=== PATIENT | female | born 1970 | race Caucasian/White ===

== ENCOUNTER → 2017-05-04 | Outpatient (REF) | payer BC | LOC: M LAB REF 12:56 | PROVIDERS: ATTEND Otolaryngology | DX: H65.22 Chronic serous otitis media, left ear (principal) ==

== ENCOUNTER 2017-11-21 10:23 | Day surgery (SDC) | payer BC ==
[~2017-11-21 10:23] MED LIST: ACETAMINOPHEN 325 MG TAB PO; PHENYLEPHRINE HCL 10 % OPHTH. SOL 5ML OS; PROPARACAINE 0.5% OPHTH SOL 15ML OS
[2017-11-21] MEDS: TROPICAMIDE 1% OPHTH SOLN 2ML OS (11:23)
[2017-11-21] MEDS: OFLOXACIN 0.3 % (OCUFLOX) OPTH SOL 5ML OS (11:24)
[2017-11-21] MEDS: PHENYLEPHRINE 2.5% OPHTH SOL 2ML OS (11:24)
[2017-11-21] MEDS: LIDOCAINE 3.5 % 1ML OPHTH TOPICAL GEL OU (11:24)
[2017-11-21] MEDS: CYCLOPENTOLATE 2% OPHTH SOLN 2ML BTL OS (11:24)
[2017-11-21] MEDS ORDERED: fentaNYL 100 MCG/2 ML INJECTION (J3010) As Ordered (12:16)
[2017-11-21] MEDS ORDERED: MIDAZOLAM INJ 2 MG/2 ML VIAL (J2250) As Ordered (12:16)
[2017-11-21] MEDS: POVIDONE-IODINE 5% OPHTH PREP SOL 30ML As Ordered (12:19)
[2017-11-21] MEDS: LIDOCAINE 1% SDV 5 ML VIAL As Ordered (12:20)
[2017-11-21] MEDS: BALANCED SALT IRRIGATION SOLUTION 500ML BAG (FOR OR EYE MACHINE) As Ordered (12:20)
[2017-11-21] MEDS: CEFUROXIME 1MG/0.1ML INTRACAMERAL INJ As Ordered (12:20)
[2017-11-21] MEDS: ACETYLCHOLINE OPHTH SOLN 1% 2ML (MIOCHOL-E) As Ordered (12:20)
[2017-11-21] MEDS: HEALON DUET (HEALON 10MG/ML 0.55ML & HEALON ENDOCOAT 30MG/ML 0.85ML) As Ordered (12:20)
[2017-11-21] MEDS ORDERED: TRIMETHOBENZAMIDE 300 MG CAP PO (13:00)
[2017-11-21] MEDS: AcetaZOLAMIDE 500 MG ER CAP PO (13:01)
[2017-11-21] MEDS: KETOROLAC 0.5% OPHTH SOLN OS (13:01)
== END 2017-11-21 13:16 | disposition home or self-care (01) ==
LOC: M SDC 10:23
DX: H25.12 Age-related nuclear cataract, left eye (principal); H25.042 Posterior subcapsular polar age-related cataract, left eye; K21.9 Gastro-esophageal reflux disease without esophagitis; F41.9 Anxiety disorder, unspecified; Z79.899 Other long term (current) drug therapy
CPT/HCPCS: 66984

== ENCOUNTER 2019-07-08 08:23 | Day surgery (SDC) | payer BC ==
[~2019-07-08] VITALS: Ht 167.6 cm; Wt 58.4 kg
[~2019-07-08 08:23] MED LIST changes: -ACETAMINOPHEN 325 MG TAB PO; +CALC-136 PO; +CHOL100029 PO; +ESTR625TA PO; +LEXA1TAB PO; +LIDOCAINE 1% MDV 20ML VIAL SQ PRN; -PHENYLEPHRINE HCL 10 % OPHTH. SOL 5ML OS; -PROPARACAINE 0.5% OPHTH SOL 15ML OS; +SELE200T20 PO; +VITA100067 PO
[2019-07-08] MEDS ORDERED: LR 1,000 ML IV ONE (09:00)
[2019-07-08] MEDS ORDERED: ONDANSETRON 4MG/2ML VIAL (J2405) As Ordered ONE (09:39)
[2019-07-08] MEDS ORDERED: PROPOFOL 200 MG/20 ML VIAL As Ordered ONE (09:39)
[2019-07-08] MEDS ORDERED: dexameTHASONE 4 MG/ML 1ML VIAL (J1100) As Ordered ONE (09:39)
[2019-07-08] MEDS ORDERED: LIDOCAINE 2% INJ 100 MG/5 ML SDV (FOR ANES.) As Ordered ONE (09:39)
[2019-07-08] MEDS ORDERED: MIDAZOLAM INJ 2 MG/2 ML VIAL (J2250) As Ordered ONE (09:42)
[2019-07-08] MEDS ORDERED: fentaNYL 100 MCG/2 ML INJECTION (J3010) As Ordered ONE (09:43)
[2019-07-08] MEDS ORDERED: OXYMETAZOLINE NASAL SPRAY (AFRIN) As Ordered ONE (10:46)
[2019-07-08] MEDS ORDERED: METHYLENE BLUE 0.5% (5MG/ML) 10 ML AMP (PROVAYBLUE)(Q9968 PER 1MG) As Ordered ONE (10:46)
[2019-07-08] MEDS ORDERED: LIDOCAINE W/EPINEPHRINE 1% 20ML VIAL As Ordered ONE (10:46)
[2019-07-08] MEDS ORDERED: CIPRODEX OTIC SUSP 7.5ML As Ordered ONE (10:46)
[2019-07-08] MEDS ORDERED: EPINEPHrine 1MG/ML INJ 30ML MD-VIAL As Ordered ONE (11:08)
[2019-07-08] MEDS ORDERED: BALANCED SALT SOLN OPHTH 15 ML BTL As Ordered ONE (11:32)
[2019-07-08] MEDS ORDERED: LR 1,000 ML IV SCH ×2 (12:00→12:15)
[2019-07-08] MEDS ORDERED: fentaNYL 100 MCG/2 ML INJECTION (J3010) IV PRN (12:00)
[2019-07-08] MEDS ORDERED: PERCOCET 5MG/325MG TAB PO PRN (12:00)
[2019-07-08] MEDS ORDERED: ONDANSETRON 4MG/2ML VIAL (J2405) IV PRN (12:00)
[2019-07-08 13:10] VITALS: BP 104/57
--- NOTE | 2019-07-08 21:15 | RO ---
DATE OF PROCEDURE: 07/08/2019 PREPROCEDURE DIAGNOSIS: Left eustachian tube obstruction. POSTPROCEDURE DIAGNOSIS: Left eustachian tube obstruction. OPERATIVE PROCEDURE: Left eustachian tube balloon dilation. SURGEON: Harsha Sood MD [facility] [employer] [facility] PATROL: ANESTHESIA: General. DESCRIPTION OF PROCEDURE: Under general anesthesia with the patient intubated, the patient was draped in the usual manner. I used pledgets soaked in adrenaline 1:100,000. I used a 30-degree scope. I examined the opening to the eustachian tube. I then inserted the balloon and passed the guide into the nasopharynx area. I inserted the tip and then the guide into the eustachian tube area. I directed it superolateral, and then I pushed against the posterior part of the eustachian tube and then found I was able to pass the balloon up into the eustachian tube. Once it was sitting in place, then balloon was inflated to 10 mm of water. It was left for 2 minutes. Once the time had passed, I deflated the balloon and then removed it and removed it from the nose. The patient tolerated the procedure well. No bleeding. The patient was extubated and transferred to the recovery room in excellent condition.
== END 2019-07-08 13:10 | disposition home or self-care (01) ==
LOC: M SDC 08:23
PROVIDERS: ATTEND Otolaryngology
DX: H68.102 Unspecified obstruction of Eustachian tube, left ear (principal); K21.9 Gastro-esophageal reflux disease without esophagitis; F41.9 Anxiety disorder, unspecified; Z79.899 Other long term (current) drug therapy
CPT/HCPCS: 69799; J1100; J2250; J2405; J3010; Q9968

== ENCOUNTER 2022-11-10 11:58 | Day surgery (SDC) | payer BC ==
[~2022-11-10] VITALS: Ht 167.6 cm; Wt 57.2 kg
[~2022-11-10 11:58] MED LIST changes: +CALC600T60 PO; +ESOM0.1C PO; +FAMO20TA5 PO; -LIDOCAINE 1% MDV 20ML VIAL SQ PRN; +MAGN200T PO; +NS 1,000 ML IV ONE; +OMEG350C PO; +VITA200021 PO
[2022-11-10] MEDS ORDERED: propofoL 200 MG/20 ML VIAL As Ordered ONE ×2 (13:10→13:11)
[2022-11-10] MEDS ORDERED: LIDOCAINE 2% 100MG/5ML SDV (FOR ANES.) As Ordered ONE (13:11)
[2022-11-10] MEDS ORDERED: fentaNYL 100 MCG/2 ML INJECTION As Ordered ONE (13:25)
[2022-11-10 14:00] VITALS: BP 125/67
== END 2022-11-10 14:10 | disposition home or self-care (01) ==
LOC: M OPP 11:58
PROVIDERS: ATTEND Internal Medicine Gastroenterology
DX: K29.70 Gastritis, unspecified, without bleeding (principal); Z79.899 Other long term (current) drug therapy; I47.1 Supraventricular tachycardia; Z80.41 Family history of malignant neoplasm of ovary
CPT/HCPCS: 43239; 88305; 91035; J3010

== ENCOUNTER 2025-02-02 11:59 | Day surgery (SDC) | payer BC ==
[~2025-02-02] VITALS: Ht 167.6 cm; Wt 52.8 kg
[~2025-02-02 11:59] MED LIST changes: +CALCCAP4 PO; -ESOM0.1C PO; +ESOM20CA2 PO; -NS 1,000 ML IV ONE
[2025-02-02] MEDS ORDERED: fentaNYL 100 MCG/2 ML INJECTION As Ordered ONE (14:23)
[2025-02-02] MEDS ORDERED: propofoL 200 MG/20 ML VIAL As Ordered ONE (14:23)
[2025-02-02] MEDS ORDERED: LIDOCAINE 2% 100MG/5ML SDV (FOR ANES.) As Ordered ONE (14:23)
[2025-02-02] MEDS ORDERED: ROCURONIUM BROMIDE 50MG/5ML VIAL As Ordered ONE (14:23)
[2025-02-02] MEDS ORDERED: MIDAZOLAM INJ 2MG/2ML VIAL As Ordered ONE (14:23)
[2025-02-02] MEDS ORDERED: ONDANSETRON 4MG 2ML VIAL As Ordered ONE (14:23)
[2025-02-02] MEDS ORDERED: ACETAMINOPHEN 1000MG/100ML IV BAG As Ordered ONE (14:37)
[2025-02-02] MEDS: CIPRODEX OTIC SUSP 7.5ML As Ordered ONE (14:50)
[2025-02-02] MEDS: EPINEPHrine 1MG/ML INJ 30ML MD-VIAL As Ordered ONE (14:55)
[2025-02-02] MEDS ORDERED: ePHEDrine SULFATE 25 MG/5 ML(5MG/ML) SYRINGE As Ordered ONE (14:58)
[2025-02-02] MEDS ORDERED: SUGAMMADEX SODIUM 500 MG/5 ML VIAL (BRIDION) As Ordered ONE (15:00)
[2025-02-02] MEDS ORDERED: MEPERIDINE 25 MG/ML 1ML VIAL IV PRN (15:45)
[2025-02-02] MEDS ORDERED: LR 1,000 ML IV SCH (15:45)
[2025-02-02] MEDS ORDERED: fentaNYL 100 MCG/2 ML INJECTION IV PRN (15:45)
[2025-02-02] MEDS ORDERED: diphenhydrAMINE 50MG/ML VIAL IV PRN (15:45)
[2025-02-02] MEDS ORDERED: METOCLOPRAMIDE INJ 10MG/2ML VIAL IV PRN (15:45)
[2025-02-02] MEDS: oxyCODONE 5MG TAB PO PRN (15:49)
[2025-02-02] MEDS: ONDANSETRON 4MG 2ML VIAL IV PRN (15:52)
[2025-02-02 16:05] VITALS: BP 114/55; TEMP 98; O2SAT 100
== END 2025-02-02 16:19 | disposition home or self-care (01) ==
LOC: M SDC 11:59
PROVIDERS: ATTEND Otolaryngology
DX: H69.82 Other specified disorders of Eustachian tube, left ear (principal); H65.22 Chronic serous otitis media, left ear; F41.9 Anxiety disorder, unspecified; Z79.899 Other long term (current) drug therapy; Z90.710 Acquired absence of both cervix and uterus
CPT/HCPCS: 69436; 69705; C1726; J0131; J0171; J1100; J2250; J2405; J3010